=== PATIENT | female | born 1965 | race Caucasian/White ===

== ENCOUNTER → 2020-03-11 09:56 | Outpatient (BNVA) | payer OTHER, SELFPAY | PROVIDERS: Visit Provider Anesthesiology | DX: M47.817 Spondylosis without myelopathy or radiculopathy, lumbosacral region (principal); M54.5 Low back pain; M46.1 Sacroiliitis, not elsewhere classified; G56.00 Carpal tunnel syndrome, unspecified upper limb; M19.049 Primary osteoarthritis, unspecified hand | CPT/HCPCS: 99202 ==

== ENCOUNTER 2020-04-11 10:31 | Outpatient (REF) | payer OTHER, SELFPAY ==
--- NOTE | 2020-04-11 10:38 | EMG_ITS ---
Right median and ulnar motor and sensory studies were performed. Right radial sensory study was performed and paraspinal muscles were tested with a needle. IMPRESSION: 1. Mild right median neuropathy across carpal tunnel. 2. Mild right ulnar neuropathy across cubital tunnel. MD JODI Aguillon/MARICRUZ / [id number]
== END 2020-04-11 10:32 | disposition home or self-care (01) ==
LOC: HO.NEURO 10:31
PROVIDERS: Visit Provider Anesthesiology
DX: G56.00 Carpal tunnel syndrome, unspecified upper limb (principal)
CPT/HCPCS: 95886; 95909

== ENCOUNTER 2020-06-05 11:05 | Outpatient (REF) | payer OTHER, SELFPAY ==
--- NOTE | ~2020-06-05 | XR_ITS ---
EXAMINATION: XR HAND/WRIST, RIGHT XR HAND/WRIST, LEFT CLINICAL INFORMATION: Pain in the hands COMPARISON: None TECHNIQUE: 4 views of each hand/wrist FINDINGS: Left hand/wrist: No fracture or dislocation. Alignment is anatomic. Joint spaces are maintained. The carpal rows are well aligned. The soft tissues appear unremarkable. Right hand/wrist: No fracture or dislocation. Alignment is anatomic. Joint spaces are maintained. Tiny osteophytes at the fifth digit distal interphalangeal joint. The carpal rows are well aligned. The soft tissues are unremarkable. XR/XR hand wrist RT IMPRESSION: Normal appearance of the left hand/wrist. Minimal degenerative change of the right hand fifth digit distal interphalangeal joint. Otherwise unremarkable appearance of the right hand/wrist.
--- NOTE | ~2020-06-05 | XR_ITS ---
EXAMINATION: XR HAND/WRIST, RIGHT XR HAND/WRIST, LEFT CLINICAL INFORMATION: Pain in the hands COMPARISON: None TECHNIQUE: 4 views of each hand/wrist FINDINGS: Left hand/wrist: No fracture or dislocation. Alignment is anatomic. Joint spaces are maintained. The carpal rows are well aligned. The soft tissues appear unremarkable. Right hand/wrist: No fracture or dislocation. Alignment is anatomic. Joint spaces are maintained. Tiny osteophytes at the fifth digit distal interphalangeal joint. The carpal rows are well aligned. The soft tissues are unremarkable. XR/XR hand wrist LT IMPRESSION: Normal appearance of the left hand/wrist. Minimal degenerative change of the right hand fifth digit distal interphalangeal joint. Otherwise unremarkable appearance of the right hand/wrist.
[2020-06-05 12:54] LABS: MANUAL DIFF FLAG NO
[2020-06-05 13:05] LABS: Basophils Percent Auto 0.2 % (0-2); Eosinophils Absolute Auto 0.1 X10*3/uL (0.0-0.4); Eosinophils Percent Auto 1.1 % (0-4); Hematocrit 40.1 % (37-47); Imm Gran Abs Auto 0.01 X10*3/uL (0.00-0.03); Imm Gran Pct Auto 0.2 % (0.0-0.4); Lymphocytes Absolute Auto 1.8 X10*3/uL (1.2-4.9); Lymphocytes Percent Auto 39.9 % (20-40); Mean Corpuscular HGB Conc 32.4 g/dl (31.0-35.0); Mean Corpuscular Hemoglobin 29.9 pg (27.0-33.0); Mean Corpuscular Volume 92.2 fL (80-98); Monocytes Absolute Auto 0.3 X10*3/uL (0.1-1.2); Monocytes Percent Auto 6.4 % (2-11); Neutrophils Absolute Auto 2.4 X10*3/uL (2.0-8.3); Neutrophils Percent Auto 52.2 % (45-73); Platelet Count 289 X10*3/uL (160-400); Red Blood Count 4.35 X10*6/uL (4.20-5.50); Red Cell Distribution Width 12.7 % (11.0-16.0); White Blood Count 4.6 X10*3/uL (4.8-10.8)
[2020-06-05 14:12] LABS: Erythrocyte Sedimentation Rate 9 MM/HR (0-20)
[2020-06-05 18:27] LABS: Alanine Aminotransferase 19 U/L (0-31); Albumin Level 4.3 g/dL (3.5-5.0); Alkaline Phosphatase 103 U/L (39-117); Anion Gap 9 (12-20); Aspartate Amino Transferase 17 U/L (5-31); Bilirubin Total 0.6 mg/dL (0.0-1.0); Blood Urea Nitrogen 11 mg/dL (9-16); Calcium 9.3 mg/dL (8.4-10.2); Carbon Dioxide 29 mmol/L (22-29); Chloride 107 mmol/L (96-108); Estimated Glomerular Filt Rate > 60; Glucose Random 137 mg/dL (60-115); Rheumatoid Factor < 15.0 IU/mL (<15.0); Sodium 141 mmol/L (135-145); Total Protein 6.8 g/dL (6.5-8.0)
[2020-06-06 16:36] LABS: Cyclic Citrullinated Peptide <16 UNITS
== END 2020-06-05 11:06 | disposition home or self-care (01) ==
LOC: HO.LAB 11:05
PROVIDERS: PCP Internal Medicine; Visit Provider Student in an Organized Health Care Education/Training Program
DX: G56.03 Carpal tunnel syndrome, bilateral upper limbs (principal); M79.641 Pain in right hand; M79.642 Pain in left hand; M47.817 Spondylosis without myelopathy or radiculopathy, lumbosacral region; Z79.899 Other long term (current) drug therapy
CPT/HCPCS: 36415; 73110; 73130; 80053; 85025; 85652; 86140; 86200; 86431; 99202

== ENCOUNTER → 2020-07-02 07:45 | Outpatient (BNVA) | payer OTHER, SELFPAY | PROVIDERS: Visit Provider Student in an Organized Health Care Education/Training Program | DX: M79.641 Pain in right hand (principal); M79.642 Pain in left hand; G56.03 Carpal tunnel syndrome, bilateral upper limbs | CPT/HCPCS: 99212 ==

== ENCOUNTER → 2022-02-26 10:54 | Outpatient (BNVA) | payer OTHER, SELFPAY | PROVIDERS: PCP Internal Medicine; Visit Provider Student in an Organized Health Care Education/Training Program | DX: M79.7 Fibromyalgia (principal) | CPT/HCPCS: 99212 ==

== ENCOUNTER 2023-03-30 14:42 | Outpatient (AMB) | payer OTHER, SELFPAY ==
[2023-03-30 14:47] VITALS: BP 116/72; PULSE 106; TEMP 36.5; O2SAT 96; BMI 24.9
--- NOTE | 2023-03-30 14:47 | A.OFFVIS_ITS ---
Intake Vital Signs 03/30/23 14:47 Height 5 ft 2 in Weight 136 lb 0.403 oz BMI 24.9 BP 116/72 Blood Pressure Location Rt brachial Position Sitting Pulse 106 H Pulse Source Pulse Oximeter Temp 97.7 F Temp Source Skin Pulse Oximetry (%) 96 Oxygen Delivery Method Room Air Intake Visit Reasons: FMS/OA Intake Note: Pt last seen 02/26/22 presents today for follow up. Communications And Signals Supervisor Required: Yes Communications And Signals Supervisor Name: Harsh Godfrey ( Son ) Accompanied by: Self / Same As Patient Allergies No Known Allergies Allergy (Verified 03/30/23 14:52) Medication List - Last Reconciled 03/30/23 by Leonidas Farris MD cetirizine 10 mg PO DAILY escitalopram oxalate 10 mg PO DAILY fluticasone propionate 50 mcg/actuation 2 sprays intranasal DAILY gabapentin 800 mg PO DAILY hydroxyzine HCl 25 mg PO BID miscellaneous medical supply 2 ea miscellaneous BEDTIME naproxen 500 mg PO DAILY PRN trazodone 50 mg PO BEDTIME HPI HPI Comments History of Present Illness Details 58-year-old female with fibromyalgia ret urns for follow-up. She states that she was started on gabapentin 800 mg many months ago. She states that causes GI upset. So she takes it only when needed. She takes it 2 to 3 times a week and it helps her muscles relax. Then its effect wears out and the pain and numbness returned. She had a sleep study and it was unremarkable. She follows up regularly with a psychiatrist. She also follows up with a psychologist every 2 weeks. She states that she does light exercises at home. She feels that where she lives currently the space is confined and she gets anxious. She feels that her symptoms are a little worse as it is getting colder. Initial hx: This is a 56-year-old female with a past medical history of carpal tunnel syndrome and recently diagnosis diverticulitis who presents for evaluation of diffuse joint pain. Patient was evaluated by Dr. Sánchez last year and there was no suspicion for autoimmune rheumatic diseases at that time. She was diagnosed with mild carpal tunnel syndrome of the right hand and mild cubital tunnel syndrome. She uses wrist splints p.r.n.. Over the last month she was diagnosed with diverticulitis, she had a colonoscopy, she continues to have mild left lower quadrant pain. Some bloating. Over the last year she has been having worsening pains of her hands, thighs, arms. She has difficulty falling asleep. Trazodone helps her go to sleep. Denies any history of skin rashes. No fevers. [facility]LY [facility] Medical History Diverticulitis Arthritis of hand Carpal tunnel syndrome Sacroiliitis Low back pain Spondylosis of lumbosacral joint without myelopathy Surgical History Hx of section Hx of tubal ligation Family History Mother Diabetes Father Arthritis Social History Household Members: None Housing: Apartment Alcohol intake: never Patient Tobacco Use Status: Never used Tobacco Current occupational status: unemployed Review of Systems Const Reports fatigue and Reports weakness GI Reports abdominal pain and Reports dyspepsia Neuro Reports weakness Psych Reports abnormal sleep pattern and Reports depression Endo Reports fatigue Physical Exam Vital Signs: Last Vital Signs Temp 97.7 F 03/30/23 14:47 Pulse 106 H 03/30/23 14:47 BP 116/72 03/30/23 14:47 Pulse Ox 96 03/30/23 14:47 Oxygen Delivery Method Room Air 03/30/23 14:47 BMI result Body Mass Index 24.9 Const General: cooperative, healthy appearing, comfortable and no acute distress Nutritional Appearance: average body habitus Orientation/consciousness: patient oriented x3 Limitations: no limitations HEENT Head: Yes normocephalic and Yes atraumatic Mouth: moist mucous membranes Resp Effort & Inspection: normal respiratory effort and able to speak in complete sentences Skin General skin exam: no rashes or lesions noted Neuro General: patient oriented x3 Extrem Other: Normal nailfold capillaroscopy Multiple fibromyalgia tender points Mild osteoarthritic changes of both hands with no synovitis Assessment & Plan Assessment & Plan (1) Fibromyalgia, primary: Code(s): M79.7 - Fibromyalgia Plan: This is a 58-year-old female with fibromyalgia who returns for follow-up. She has been started on gabapentin 800 mg, but patient only takes it as needed 2 to 3 times a week with some relief, does not take it regularly due to GI upset. She mentions getting a sleep study and it was unremarkable. She follows up regularly with a psychiatrist and a psychologist. She does some light exercises at home. Advised patient to consider aquatherapy. She mentions that she will be moving to [place] in the summer. Follow-up with PCP Plan I spent 19 minutes reviewing patient's chart, evaluating patient, counseling patient and documenting in the chart Coding Level of Care Code Est Pt Level 3 (22550) Diagnoses Fibromyalgia, primary M79.7
== END 2023-03-30 15:15 | disposition home or self-care (01) ==
PROVIDERS: PCP Internal Medicine; Visit Provider Student in an Organized Health Care Education/Training Program
DX: M79.7 Fibromyalgia (principal)
CPT/HCPCS: 99213

== ENCOUNTER → 2023-03-30 14:42 | Outpatient (BNVA) | payer OTHER, SELFPAY | PROVIDERS: PCP Internal Medicine; Visit Provider Student in an Organized Health Care Education/Training Program | DX: M79.7 Fibromyalgia (principal) | CPT/HCPCS: 99212 ==